=== PATIENT | female | born 1975 | race Caucasian/White ===

== ENCOUNTER 2017-03-17 22:13 | Emergency (ER) | payer MEDICAID ==
[~2017-03-17] VITALS: Ht 154.9 cm; Wt 86.6 kg
[~2017-03-17 22:13] MED LIST: ATORVASTATIN CA20 MG PO; BAYER CHEWABLE81 MG PO; CYCLOBENZAPRINE5 MG PO; HYDROCHLOROTHIA25 M2 PO; HYDROCODONE-AP1 EAC6 PO; LOPRESSOR50 PO; NORCO 5-325 TA1 EAC1 PO; PAXIL10 MG PO; PLAVIX 300 MG300 M1 PO; PLAVIX 75 MG TA75 M1 PO; XANAX1 MG PO
[2017-03-17] MEDS ORDERED: TESSALON PERLE100 MG (22:28)
[2017-03-17 23:29] LABS: HEMOGLOBIN 12.3 gm/dL (12.0-15.0)
[2017-03-17 23:31] LABS: ABSOLUTE EOSINOPHILS 0.1 thou/uL (0.0-0.7); ABSOLUTE LYMPHOCYTES 2.3 thou/uL (0.8-5.3); ABSOLUTE MONOCYTES 0.5 thou/uL (0.0-1.2); ABSOLUTE NEUTROPHILS 4.8 thou/uL (1.6-8.1); BASOPHILS 0.6 %; EOSINOPHILS 1.7 %; HEMATOCRIT 36.8 % (37.0-47.0); LYMPHOCYTES 29.3 %; MCH 30.2 pg (26.0-34.0); MCHC 33.4 g/dL (28.0-37.0); MCV 90.5 fL (80.0-100.0); MONOCYTES 5.8 %; MPV 7.9 fl. (7.2-11.1); NUCLEATED RBCS 0 /100WBC; PLATELET COUNT* 388 thou/uL (150-400); POLYS 62.6 %; RBC 4.06 mil/uL (4.20-5.00); RDW-CV 14.9 % (10.5-14.5); WBC 7.7 thou/uL (4.0-11.0)
[2017-03-17 23:46] LABS: CALCIUM 9.6 mg/dL (8.5-10.1); CREATININE 1.1 mg/dL (0.6-1.3); POTASSIUM 4.7 mmol/L (3.5-5.1)
[2017-03-17] MEDS ORDERED: IBUPROFEN 800800 MG PO (23:46)
[2017-03-17] MEDS ORDERED: CYCLOBENZAPRINE5 MG PO (23:46)
[2017-03-17 23:51] LABS: ALBUMIN 3.7 g/dL (3.4-5.0); TOTAL BILIRUBIN 0.1 mg/dL (<0.1-1.0); TOTAL PROTEIN 6.6 g/dL (6.4-8.2)
[2017-03-18 00:25] VITALS: BP 148/80
== END 2017-03-18 00:25 | disposition home or self-care (01) ==
LOC: M.ERS 22:13
PROVIDERS: Personal Emergency Response Attendant
DX: N93.8 Other specified abnormal uterine and vaginal bleeding (principal); I10 Essential (primary) hypertension; F17.210 Nicotine dependence, cigarettes, uncomplicated; Z90.89 Acquired absence of other organs; Z88.1 Allergy status to other antibiotic agents; Z88.8 Allergy status to other drugs, medicaments and biological substances

== ENCOUNTER 2017-03-18 04:35 | Emergency (ER) | payer MEDICAID ==
[~2017-03-18] VITALS: Ht 154.9 cm; Wt 86.6 kg
[~2017-03-18 04:35] MED LIST changes: +IBUPROFEN 800800 MG PO; +TESSALON PERLE100 MG
[2017-03-18 05:07] LABS: HEMATOCRIT 38.1 % (37.0-47.0); HEMOGLOBIN 12.9 gm/dL (12.0-15.0); MCH 30.2 pg (26.0-34.0); MCHC 33.8 g/dL (28.0-37.0); MCV 89.3 fL (80.0-100.0); MPV 8.1 fl. (7.2-11.1); RBC 4.26 mil/uL (4.20-5.00); RDW-CV 14.7 % (10.5-14.5); WBC 10.1 thou/uL (4.0-11.0)
[2017-03-18 05:40] LABS: URINE BILIRUBIN NEGATIVE (Negative); URINE BLOOD 3+ (Negative); URINE CLARITY CLEAR; URINE COLOR RED; URINE GLUCOSE-RANDOM NEGATIVE (Negative); URINE KETONES NEGATIVE (Negative); URINE LEUKOCYTES-REFLEX NEGATIVE (Negative); URINE NITRITE-REFLEX NEGATIVE (Negative); URINE PROTEIN TRACE (Negative); URINE SPECIFIC GRAVITY <= 1.005 (1.005-1.030); URINE UROBILINOGEN 0.2 E.U./dl (0.2-1.0)
[2017-03-18 05:57] LABS: BACTERIA-REFLEX 1-9 Few /HPF (None Seen); CASTS None Seen /LPF (None Seen); MUCUS 0-3 Light strn/LPF (None Seen); SQUAMOUS 0-3 Few /LPF (0-3); URINE RBC >20 Many /HPF (0-2); URINE WBC-REFLEX None Seen /HPF (0-5)
[2017-03-18 05:58] LABS: CRYSTALS None Seen /LPF (None Seen)
[2017-03-18 06:10] VITALS: BP 140/94
== END 2017-03-18 06:10 | disposition home or self-care (01) ==
LOC: M.ERS 04:35
PROVIDERS: Personal Emergency Response Attendant
DX: N93.8 Other specified abnormal uterine and vaginal bleeding (principal); I10 Essential (primary) hypertension; F17.210 Nicotine dependence, cigarettes, uncomplicated; Z90.89 Acquired absence of other organs; Z88.1 Allergy status to other antibiotic agents; Z88.8 Allergy status to other drugs, medicaments and biological substances

== ENCOUNTER 2017-07-18 22:59 | Emergency (ER) | payer MEDICAID ==
[~2017-07-18] VITALS: Ht 160 cm; Wt 81.7 kg
[2017-07-19 00:11] LABS: ABSOLUTE BASOPHILS 0.1 thou/uL (0.0-0.2); ABSOLUTE EOSINOPHILS 0.2 thou/uL (0.0-0.7); ABSOLUTE LYMPHOCYTES 2.7 thou/uL (0.8-5.3); ABSOLUTE MONOCYTES 0.7 thou/uL (0.0-1.2); ABSOLUTE NEUTROPHILS 10.2 thou/uL (1.6-8.1); BASOPHILS 0.6 %; EOSINOPHILS 1.3 %; HEMATOCRIT 36.1 % (37.0-47.0); HEMOGLOBIN 11.9 gm/dL (12.0-15.0); LYMPHOCYTES 19.5 %; MCH 29.7 pg (26.0-34.0); MONOCYTES 5.2 %; MPV 7.5 fl. (7.2-11.1); NUCLEATED RBCS 0 /100WBC; PLATELET COUNT* 476 thou/uL (150-400); POLYS 73.4 %; RBC 4.01 mil/uL (4.20-5.00); RDW-CV 14.3 % (10.5-14.5); WBC 13.9 thou/uL (4.0-11.0)
[2017-07-19 00:15] LABS: CALCIUM 9.4 mg/dL (8.5-10.1); CREATININE 1.3 mg/dL (0.6-1.3); POTASSIUM 3.2 mmol/L (3.5-5.1)
[2017-07-19] MEDS ORDERED: LASIX 40 MG TAB40 M2 PO (00:25)
[2017-07-19] MEDS ORDERED: KLOR-CON 1010 MEQ PO (00:25)
[2017-07-19 00:27] LABS: AMP/METHAMP Negative (Negative); BARBITURATES Negative (Negative); BENZODIAZEPINES POSITIVE (Negative); COCAINE Negative (Negative); METHADONE Negative (Negative); OPIATES Negative (Negative); PCP Negative (Negative); THC Negative (Negative)
[2017-07-19 00:33] LABS: URINE BILIRUBIN NEGATIVE (Negative); URINE BLOOD NEGATIVE (Negative); URINE CLARITY CLEAR; URINE COLOR STRAW; URINE GLUCOSE-RANDOM NEGATIVE (Negative); URINE KETONES NEGATIVE (Negative); URINE LEUKOCYTES-REFLEX 1+ (Negative); URINE NITRITE-REFLEX NEGATIVE (Negative); URINE PROTEIN NEGATIVE (Negative); URINE UROBILINOGEN 0.2 E.U./dl (0.2-1.0)
[2017-07-19 01:02] LABS: SQUAMOUS >10 Many /LPF (0-3)
[2017-07-19 01:03] VITALS: BP 134/80
[2017-07-19 01:03] LABS: BACTERIA-REFLEX 1-9 Few /HPF (None Seen); CASTS None Seen /LPF (None Seen); CRYSTALS None Seen /LPF (None Seen); URINE RBC None Seen /HPF (0-2); URINE WBC-REFLEX 0-5 Rare /HPF (0-5)
== END 2017-07-19 01:04 | disposition home or self-care (01) ==
LOC: M.ERS 22:59
PROVIDERS: Emergency Medicine
DX: R60.0 Localized edema (principal); I10 Essential (primary) hypertension; F17.210 Nicotine dependence, cigarettes, uncomplicated; Z88.1 Allergy status to other antibiotic agents; Z88.8 Allergy status to other drugs, medicaments and biological substances

== ENCOUNTER 2017-07-24 01:45 | Emergency (ER) | payer MEDICAID ==
[~2017-07-24] VITALS: Ht 154.9 cm; Wt 86.2 kg
[~2017-07-24 01:45] MED LIST changes: +KLOR-CON 1010 MEQ PO; +LASIX 40 MG TAB40 M2 PO
[2017-07-24 03:05] LABS: CREATININE 1.1 mg/dL (0.6-1.3); MAGNESIUM 1.8 mg/dL (1.8-2.4)
[2017-07-24 03:23] VITALS: BP 116/79
== END 2017-07-24 03:25 | disposition home or self-care (01) ==
LOC: M.ERS 01:45
PROVIDERS: Emergency Medicine
DX: M79.1 Myalgia (principal); I10 Essential (primary) hypertension; F17.210 Nicotine dependence, cigarettes, uncomplicated; Z88.1 Allergy status to other antibiotic agents; Z88.8 Allergy status to other drugs, medicaments and biological substances

== ENCOUNTER 2017-12-22 10:23 | Inpatient (IN) | payer MEDICAID ==
[~2017-12-22] VITALS: Ht 154.9 cm; Wt 74.4 kg
[2017-12-22 10:41] VITALS: BP 138/82
[2017-12-22] MEDS ORDERED: BLOOD PRESSURE MED (10:44)
[2017-12-22 10:46] LABS: URINE BLOOD 1+ (Negative); URINE CLARITY CLEAR; URINE COLOR YELLOW; URINE GLUCOSE-RANDOM NEGATIVE (Negative); URINE KETONES 1+ (Negative); URINE LEUKOCYTES-REFLEX 1+ (Negative); URINE NITRITE-REFLEX NEGATIVE (Negative); URINE PROTEIN 1+ (Negative)
[2017-12-22 10:49] LABS: ICTOTEST (BILI CONFIRMATORY) Negative (Negative); URINE BILIRUBIN 2+ (Negative)
[2017-12-22 10:51] LABS: CASTS None Seen /LPF (None Seen); CRYSTALS None Seen /LPF (None Seen); MUCUS 4-6 Moderate strn/LPF (None Seen); SQUAMOUS 4-10 Moderate /LPF (0-3); URINE RBC 3-10 Few /HPF (0-2); URINE WBC-REFLEX 6-15 Few /HPF (0-5)
[2017-12-22 11:06] LABS: ABSOLUTE BASOPHILS 0.1 thou/uL (0.0-0.2); ABSOLUTE LYMPHOCYTES 1.6 thou/uL (0.8-5.3); ABSOLUTE MONOCYTES 0.5 thou/uL (0.0-1.2); ABSOLUTE NEUTROPHILS 5.1 thou/uL (1.6-8.1); BASOPHILS 0.8 %; EOSINOPHILS 0.6 %; HEMATOCRIT 40.9 % (37.0-47.0); HEMOGLOBIN 13.5 gm/dL (12.0-15.0); LYMPHOCYTES 22.2 %; MCH 29.2 pg (26.0-34.0); MCV 88.8 fL (80.0-100.0); MONOCYTES 7.2 %; MPV 7.6 fl. (7.2-11.1); NUCLEATED RBCS 0 /100WBC; PLATELET COUNT* 426 thou/uL (150-400); POLYS 69.2 %; WBC 7.4 thou/uL (4.0-11.0)
[2017-12-22 11:14] LABS: ANION GAP 10 mmol/L (7-16); BUN 22 mg/dL (7-18); CALCIUM 9.4 mg/dL (8.5-10.1); CHLORIDE 101 mmol/L (98-107); CO2 26 mmol/L (21-32); GLUCOSE 110 mg/dL (70-99); SODIUM 137 mmol/L (136-145)
[2017-12-22 11:15] LABS: POTASSIUM 2.8 mmol/L (3.5-5.1)
[2017-12-22 11:21] LABS: ALBUMIN 4.1 g/dL (3.4-5.0); ALKALINE PHOSPHATASE 70 U/L (46-116); LIPASE 279 U/L (73-393); SGOT 20 U/L (15-37); SGPT 23 U/L (30-65); TOTAL BILIRUBIN 0.6 mg/dL (<0.1-1.0); TOTAL PROTEIN 7.7 g/dL (6.4-8.2); TROPONIN-I LEVEL <0.06 ng/mL (<0.06)
[2017-12-22 12:02] VITALS: BP 127/78
[2017-12-22 12:39] VITALS: BP 127/78
[2017-12-22] MEDS ORDERED: NORVASC5 MG PO (13:10)
[2017-12-22 15:41] VITALS: BP 117/84
[2017-12-22] MEDS ORDERED: ATENOLOL 25 MG25 M1 PO (18:58)
[2017-12-22 20:00] VITALS: BP 140/82
[2017-12-22 23:18] VITALS: BP 132/83
[2017-12-23 04:00] VITALS: BP 120/67
[2017-12-23 04:49] LABS: HEMATOCRIT 38.5 % (37.0-47.0); HEMOGLOBIN 12.5 gm/dL (12.0-15.0); MCH 29.1 pg (26.0-34.0); MCHC 32.4 g/dL (28.0-37.0); MCV 89.9 fL (80.0-100.0); MPV 7.9 fl. (7.2-11.1); RBC 4.28 mil/uL (4.20-5.00); RDW-CV 15.8 % (10.5-14.5); WBC 8.9 thou/uL (4.0-11.0)
[2017-12-23 04:50] LABS: CALCIUM 8.7 mg/dL (8.5-10.1); CREATININE 0.8 mg/dL (0.6-1.3); MAGNESIUM 1.8 mg/dL (1.8-2.4); PHOSPHORUS* 2.6 mg/dL (2.5-4.9); POTASSIUM 3.5 mmol/L (3.5-5.1)
[2017-12-23 09:00] VITALS: BP 131/80
--- NOTE | 2017-12-23 11:41 | EKG ---
[place] [address] ELECTROCARDIOGRAM REPORT Name: DEONTE CORONA Room: [address] ADM IN .R.#: [id number] Admission: 12/22/17 Attend Phys: Lizzie Zaragoza Discharge: Date of : 75 Report #: [id number] THIS REPORT FOR: //name// [facility] ED Test Date: 2017-12-22 Test Time: 10:44:23 Pat Name: DEONTE CORONA Department: Room: [facility] Gender: F Manager Legal: NANCY : 1975 Requested By: Citlaly Jefferson Order Number: [id number] MD: Charles Evans Measurements Intervals [place] Rate: 96 P: 48 ID: 157 QRS: 1 QRSD: 90 T: 29 QT: 355 QTc: 449 Interpretive Statements Sinus rhythm nonspecific t wave changes Abnormal R-wave progression, late transition Compared to ECG 05/22/2016 18:50:37 Prolonged QT interval no longer present Electronically Signed On 12-23-2017 11:41:00 ROOF PAINTER by Charles Evans [email or web address] <ELECTRONICALLY SIGNED> By: Charles Evans MD, FACC 12/23/17 1141 1044 1044 Charles Evans MD, [facility] /EPI
[2017-12-23 11:47] VITALS: BP 138/82
[2017-12-23 16:08] VITALS: BP 137/77
[2017-12-23 20:00] VITALS: BP 144/91
[2017-12-24] VITALS: BP 100/85
[2017-12-24 03:59] VITALS: BP 117/73
[2017-12-24 05:16] LABS: HEMATOCRIT 38.7 % (37.0-47.0); HEMOGLOBIN 12.5 gm/dL (12.0-15.0); MCH 29.3 pg (26.0-34.0); MCHC 32.2 g/dL (28.0-37.0); MCV 91.2 fL (80.0-100.0); MPV 8.2 fl. (7.2-11.1); RBC 4.24 mil/uL (4.20-5.00); WBC 7.7 thou/uL (4.0-11.0)
[2017-12-24 05:28] LABS: CALCIUM 8.4 mg/dL (8.5-10.1); CREATININE 0.8 mg/dL (0.6-1.3); MAGNESIUM 1.7 mg/dL (1.8-2.4); PHOSPHORUS* 2.6 mg/dL (2.5-4.9); POTASSIUM 3.5 mmol/L (3.5-5.1)
[2017-12-24 08:00] VITALS: BP 120/85
[2017-12-24] MEDS ORDERED: LEVAQUIN 500 M500 M2 PO (11:47)
[2017-12-24] MEDS ORDERED: ZOFRAN ODT4 MG DISSOLVE (11:48)
[2017-12-24 11:50] VITALS: BP 120/85
[2017-12-24 12:21] VITALS: BP 122/80
== END 2017-12-24 12:28 | disposition home or self-care (01) | DRG 690 ==
LOC: M.ERS 10:23 → M.TBA-ER 11:36 → M.2W 12:28
PROVIDERS: Physician Assistant; ADMIT Internal Medicine
DX: N39.0 Urinary tract infection, site not specified (principal); I10 Essential (primary) hypertension; H91.90 Unspecified hearing loss, unspecified ear; E87.6 Hypokalemia; F32.9 Major depressive disorder, single episode, unspecified; F41.9 Anxiety disorder, unspecified; F17.210 Nicotine dependence, cigarettes, uncomplicated; Z79.82 Long term (current) use of aspirin; Z79.899 Other long term (current) drug therapy; Z88.1 Allergy status to other antibiotic agents; Z91.041 Radiographic dye allergy status; Z88.8 Allergy status to other drugs, medicaments and biological substances; Z91.048 Other nonmedicinal substance allergy status

== ENCOUNTER 2018-01-28 12:58 | Inpatient (IN) | payer MEDICAID ==
[~2018-01-28] VITALS: Ht 162.6 cm; Wt 83.0 kg
--- NOTE | ~2018-01-28 | CON ---
[address] [address] CONSULTATION Name: CHLOEDEONTEHUBERT CARLTON Room: [address] IN .R.#: [id number] Admission: 01/28/18 Attend Phys: Lizzie Zaragoza Discharge: Date of : 75 Report #: [id number] THIS REPORT FOR: //name// CC: Young Archer DO DATE OF SERVICE: 01/30/2018 REQUESTING PHYSICIAN: Altaf Archer DO REASON FOR CONSULT: Persistent nausea and vomiting. HISTORY OF PRESENT ILLNESS: This is a 42-year-old female who was in the hospital back in December. The patient has had intermittent symptoms of severe epigastric pain associated with nausea and vomiting. The patient also complains of constipation, which has been ongoing. She does not see any relationship between her constipation and symptoms of nausea, vomiting. She denies ever having any colonoscopy or gastric emptying test in the past. PAST MEDICAL HISTORY: Significant for history of anxiety, depression, hypertension, right carotid endarterectomy, hypokalemia, hard of hearing. ALLERGIES AND MEDICATIONS: Refer to hospital MAR. SOCIAL HISTORY: The patient admits to tobaccoism, but denies any use of marijuana. She also may have occasional alcoholic beverage. FAMILY HISTORY: Negative for GI malignancy. PHYSICAL EXAMINATION: VITAL SIGNS: Reveals blood pressure of 130/85, respiration 14, pulse 67, temperature 98.5. LUNGS: Clear. CARDIOVASCULAR: Regular. ABDOMEN: Soft, tender to palpation in the epigastric region. Bowel sounds are positive. NEUROLOGIC: The patient is hard of hearing, but otherwise alert and oriented x 3 with no focal deficit. LABORATORY DATA: Reveal sodium of 140, potassium 4.3, up from 2.8 yesterday. BUN is 15, creatinine 0.7, glucose 96. Liver function tests all within normal limit. WBC is 14.7, hemoglobin 11.9 with platelets of [address]. [place] [address] CONSULTATION Name: DEONTE CORONA Room: [address] IN [facility]#: [id number] Admission: 01/28/18 Attend Phys: Lizzie Zaragoza Discharge: Date of : 75 Report #: [id number] IMAGING: Chest x-ray was obtained, which showed no acute cardiopulmonary process. ASSESSMENT AND PLAN: We will consider upper endoscopy to further evaluate the patient's symptoms of nausea, vomiting and epigastric pain. If this was negative, we will consider a gastric emptying test. By: 1320 1550Jadon Washington MD /bruna
[~2018-01-28 12:58] MED LIST changes: +ATENOLOL 25 MG25 M1 PO; +BLOOD PRESSURE MED; +LEVAQUIN 500 M500 M2 PO; +NORVASC5 MG PO; +ZOFRAN ODT4 MG DISSOLVE
[2018-01-28 13:08] VITALS: BP 133/91
[2018-01-28 13:23] LABS: URINE BLOOD 3+ (Negative); URINE CLARITY CLEAR; URINE COLOR YELLOW; URINE GLUCOSE-RANDOM NEGATIVE (Negative); URINE KETONES 2+ (Negative); URINE LEUKOCYTES-REFLEX 1+ (Negative); URINE NITRITE-REFLEX NEGATIVE (Negative); URINE PROTEIN 2+ (Negative)
[2018-01-28 13:25] LABS: ICTOTEST (BILI CONFIRMATORY) Positive (Negative); URINE BILIRUBIN 1+ (Negative)
[2018-01-28 13:29] LABS: CASTS None Seen /LPF (None Seen); CRYSTALS None Seen /LPF (None Seen); MUCUS >6 Heavy strn/LPF (None Seen); SQUAMOUS >10 Many /LPF (0-3); URINE WBC-REFLEX 6-15 Few /HPF (0-5)
[2018-01-28 13:30] LABS: HEMATOCRIT 40.2 % (37.0-47.0); HEMOGLOBIN 13.4 gm/dL (12.0-15.0); MCH 29.7 pg (26.0-34.0); MCHC 33.4 g/dL (28.0-37.0); MCV 88.8 fL (80.0-100.0); MPV 7.2 fl. (7.2-11.1); NUCLEATED RBCS 0 /100WBC; PLATELET COUNT* 457 thou/uL (150-400); RBC 4.53 mil/uL (4.20-5.00); RDW-CV 15.9 % (10.5-14.5); WBC 9.8 thou/uL (4.0-11.0)
[2018-01-28 13:46] LABS: CALCIUM 9.6 mg/dL (8.5-10.1); CREATININE 0.9 mg/dL (0.6-1.3)
[2018-01-28 13:51] LABS: ALBUMIN 4.3 g/dL (3.4-5.0); MAGNESIUM 1.6 mg/dL (1.8-2.4); TOTAL BILIRUBIN 0.4 mg/dL (<0.1-1.0); TOTAL PROTEIN 7.7 g/dL (6.4-8.2)
[2018-01-28 13:54] LABS: POTASSIUM 2.8 mmol/L (3.5-5.1)
[2018-01-28 14:24] LABS: ABSOLUTE EOSINOPHILS 0.1 thou/uL (0.0-0.7); ABSOLUTE LYMPHOCYTES 0.7 thou/uL (0.8-5.3); ABSOLUTE MONOCYTES 0.1 thou/uL (0.0-1.2); ABSOLUTE NEUTROPHILS 8.9 thou/uL (1.6-8.1); PLATELET ESTIMATE ADEQUATE
[2018-01-28] MEDS ORDERED: ZOFRAN ODT4 MG PO (14:27)
[2018-01-28 15:13] VITALS: BP 168/99
[2018-01-28 16:00] VITALS: BP 155/98
[2018-01-28 16:03] LABS: ALBUMIN 3.8 g/dL (3.4-5.0); CALCIUM 8.4 mg/dL (8.5-10.1); CREATININE 0.8 mg/dL (0.6-1.3); TOTAL BILIRUBIN 0.3 mg/dL (<0.1-1.0); TOTAL PROTEIN 6.8 g/dL (6.4-8.2)
[2018-01-28 16:12] LABS: POTASSIUM 2.8 mmol/L (3.5-5.1)
--- NOTE | 2018-01-28 16:43 | NUR ---
RECEIVED REPORT. PT TRANSFERRED TO ROOM 221 VIA CART. VSS. CARDIAC MONTIORING IN PLACE SR. ADMISSION HISTORY AND ASSESSMENT COMPLETED CHARTED. PT ALERT AND OREINTED. PT ON RA. IVF INFUSING PER ORDERS. PT HAS SOME NAUSE WITHOUT VOMITING. DR. WEST NOTIFIED OF PT'S K LEVEL AND NEED FOR E-LYTE PROTOCOL. PT DNEIES ANY PAIN AT THIS TIME. CALL LIGHT IS WITHIN REACH. WILL CONTINUE TO MOTNIOR FOR DURATION OF SHIFT.
[2018-01-28 20:00] VITALS: BP 169/69
[2018-01-29] VITALS (7 sets, daily range): BP systolic 130–170; BP diastolic 78–105
--- NOTE | 2018-01-29 07:37 | NUR ---
PATIENT RESTED IN BED. PATIENT COMPLAIN OF NAUSEA, DOCTOR NOTIFIED, SEE ORDERS. PATIENT VOMIT WAS DARK BROWN. PATIENT SHOWED TIGHTNESS AND CRAMPING THAT HAS DECREASED. DOCTOR NOTIFIED OF ELEVATED BLOOD PRESSURE, SEE ORDERS. CALL LIGHT WITH IN REACH, HOURLY ROUNDING OBSERVED, PATIENT VITALS ARE STABLE.
--- NOTE | 2018-01-29 08:10 | NUR ---
RECEIVED REPORT. ASSUMED CARE OF PT AT 0730. VSS. CARDIAC MONITORING IN PLACE SR. AM ASSESSMENT AND VITALS COMPLETED CHARTED. PT ALERT AND ORIENTED. PT REPORTS HAVING A "BAD NIGHT" PT DENIES ANY PAIN THIS AM. IVF INFUSING PER ORDERS. PT GIVEN PRN ZOFRAN FOR NAUSEA. PT INFORMED OF PLAN OF CARE. CALL LIGHT IS WITHIN REACH. WILL CONTINUE TO MONITOR FOR DURATIUON OF SHIFT.
--- NOTE | 2018-01-29 12:50 | NUR ---
Pt is A&O. NUIQSUT, but can read lips if you speak slowly. Pt's sig other in room and able to provide hx also. Pt resides at home with her sig other. Independent with ADLs, continues to cook and clean, but does not drive d/t her hearing loss. No DME. No hx of HH or SNF. Goal is home at vt. No needs anticipated.
[2018-01-29 13:50] LABS: ABSOLUTE LYMPHOCYTES 1.2 thou/uL (0.8-5.3); ABSOLUTE MONOCYTES 0.9 thou/uL (0.0-1.2); ABSOLUTE NEUTROPHILS 12.5 thou/uL (1.6-8.1); BASOPHILS 0.2 %; EOSINOPHILS 0.1 %; HEMATOCRIT 37.1 % (37.0-47.0); HEMOGLOBIN 11.9 gm/dL (12.0-15.0); LYMPHOCYTES 8.4 %; MCH 29.2 pg (26.0-34.0); MCHC 32.1 g/dL (28.0-37.0); MONOCYTES 6.1 %; MPV 8.2 fl. (7.2-11.1); NUCLEATED RBCS 0 /100WBC; PLATELET COUNT* 415 thou/uL (150-400); POLYS 85.2 %; RBC 4.08 mil/uL (4.20-5.00); WBC 14.7 thou/uL (4.0-11.0)
[2018-01-29 13:59] LABS: ALBUMIN 3.7 g/dL (3.4-5.0); CALCIUM 8.7 mg/dL (8.5-10.1); CREATININE 0.7 mg/dL (0.6-1.3); POTASSIUM 3.8 mmol/L (3.5-5.1); TOTAL BILIRUBIN 0.4 mg/dL (<0.1-1.0)
--- NOTE | 2018-01-29 18:40 | NUR ---
VSS. CARDIAC MONTIORING IN PLACE WITH NO CHAGNES THIS SHIFT. PT PROGRESSING TOWARDS GOALS. PT REAMINS ALERT AND OREITNED. PT REPORTS FEELING SOMEWHAT BETTER. PT REMAINS ON RA. IVF CHANGED THIS SHIFT. MULTIVITAMIN BAG INFUSING AT THIS TIME. PT HAD NO COMPLAINTS OF PAIN THIS SHIFT. PT'S NAUSEA BETTER MANAGED. GI CONSULT. PLAN FOR EGD TOMORROW. PT INFORMED OF PLAN OF CARE. PT COMMUNICATES UNDERSTANIDNG. CALL LIGHT IS WITHIN REACH. WILL CONTINUE TO MONTIOR FOR DURATION OF SHIFT.
[2018-01-30] VITALS (8 sets, daily range): BP systolic 130–181; BP diastolic 84–95
[2018-01-30 05:13] LABS: CALCIUM 9.2 mg/dL (8.5-10.1); CREATININE 0.7 mg/dL (0.6-1.3); MAGNESIUM 2.2 mg/dL (1.8-2.4); POTASSIUM 4.3 mmol/L (3.5-5.1)
--- NOTE | 2018-01-30 05:13 | NUR ---
PATIENT RESTED IN BED, NO ACUTE CHANGES. PATIENT DID NOT SHOW SIGNS OF DISTRESS. FALL PRECAUTIONS IN PLACE, CALL LIGHT WITH IN REACH, HOURLY ROUNDING OBSERVED, BED ALARM ON. PATIENT CURRENTLY DENIES PAIN AND NAUSEA AT THE MOMENT. PATIENT IS NPO FOR EGD.
--- NOTE | 2018-01-30 10:44 | NUR ---
PT ALERT AND ORIENTED X 4. HARD OF HEARING. DENIES NAUSEA AND PAIN. IV PATENT. HUBBAND IN ROOM WITH PATIENT. NPO FOR EGD PROCEDURE. PT TO PROCEDURE @ 1010 BY WHEEL CHAIR.
--- NOTE | 2018-01-30 15:50 | EKG ---
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
--- NOTE | 2018-01-30 17:15 | NUR ---
PT RETURNED TO UNIT @ 1410. IVF RESUMED. TOLERATED FULL LIQUID DIET. HOURLY ROUNDS MAINTAINED. @ BEDSIDE. NURSING TO CONTINUE TO MONITOR.
[2018-01-31] VITALS (7 sets, daily range): BP systolic 115–161; BP diastolic 66–84
--- NOTE | 2018-01-31 06:31 | NUR ---
PATIENT PARTIALLY PROGRESSING TOWARDS GOALS: PATIENT HAD A FEW EPISODES OF NAUSEA, BUT NO VOMITING, AND C/O PAIN IN EPIGASTRIC REGION. MEDICATIONS ADMINISTERED PER MAR WITH PARTIAL RELIEF. PATIENT WAS ABLE TO GET SOME SLEEP THROUGHOUT SHIFT. REMAINS AT BEDSIDE. HOURLY ROUNDING OBSERVED. CALL LIGHT WITHIN REACH
--- NOTE | 2018-01-31 12:29 | NUR ---
Spoke with , anticipate that Pt will be ready to dc tomorrow.
--- NOTE | 2018-01-31 17:34 | NUR ---
PATIENT HAS BEEN ALERT AND ORIENTED TODAY VERY PLEASANT. UP AD BELINDA IN ROOM. TOLERATED DIET ADVANCEMENT WELL TODAY. FAMILY HAS BEEN AT BEDSIDE MOST OF THE DAY. VITAL SIGNS STABLE ON ROOM AIR. NAUSEA IS BETTER TODAY. CALL LIGHT IS IN REACH, WILL CONTINUE TO MONITOR.
--- NOTE | 2018-02-01 05:59 | NUR ---
PATIENT PROGRESSING TOWARDS GOALS: PATIENT STATES EPIGASTRIC PAIN AND NAUSEA HAS IMPROVED. NO MEDS RECEIVED FOR THIS. PATIENT DID RECEIVE MEDICATION FOR TYLENOL. PATIENT SLEPT MOST OF SHIFT. PATIENT IS ANTICIPATING DISCHARGE TODAY. CALL LIGHT WITHIN REACH
[2018-02-01 08:00] VITALS: BP 107/71
[2018-02-01] MEDS ORDERED: CARAFATE 1 GM TA1 G1 PO (08:41)
[2018-02-01] MEDS ORDERED: REGLAN 5 MG TAB5 MG PO (08:41)
[2018-02-01] MEDS ORDERED: PHENERGAN 25 MG25 M1 PO (08:41)
[2018-02-01] MEDS ORDERED: PANTOPRAZOLE SO40 M1 PO (08:41)
--- NOTE | 2018-02-01 09:41 | NUR ---
ASSUMED PT CARE AT 0730, FULL ASSESMETN DONE CHARTED. PT A/O X4, IR[place]QUOIS, PLEASANT. BP LOWER THIS AM, LOPRESSOR HELD. PT M/S STATUS. RECIEVED DISCHARGE ORDERS THIS AM. PT USES CALL LIGHT APPROPRIALTY. WILL CONTINUE WITH PLAN OF CARE.
[2018-02-01 10:20] VITALS: BP 107/71
--- NOTE | 2018-02-03 13:08 | PATH ---
[address] [address] PATHOLOGY RPT PROCEDURE Name: HERMINIA PINA Room: [address] IN M.R.#: [id number] Admission: 01/28/18 Date of : 75 Discharge: 02/01/18 Report #: [id number] Path Case #: [id number] [facility] Accession Number: [id number] . 01 Material submitted: . PART A: MANISH PYLORIC ULCER PART B: DUODENAL BIOPSY . 01 Clinical history: . None provided . 02 Diagnosis: A. "Peripyloric ulcer", biopsy: - Gastric mucosa with mild reactive/regenerative changes and mild acute and chronic inflammation. - Negative H. pylori immunohistochemical stain (block A1); control reacted appropriately. . B. "Duodenal biopsies", biopsy: - Small bowel/duodenal mucosa with minimal histologic alterations; no evidence of celiac sprue. . (EVARISTO:ochoa; 01/31/2018) MBR/01/31/2018 . 02 Electronically signed: . Meena Bansal MD, Pathologist NPI- [id number] . 01 Gross description: . A. Received in formalin labeled "Herminia Pina, peripyloric ulcer," are 2 segments of betancourt soft tissue measuring 0.9 x 0.2 x 0.2 cm in aggregate dimensions and ranging from 0.4 to 0.5 cm in maximum dimension. The specimen is submitted entirely in cassette A1. . B. Received in formalin labeled "Herminia Pina, duodenal biopsies," are 4 segments of bet[place]ourt soft tissue measuring 1.1 x 0.8 x 0.2 cm in aggregate dimensions and ranging from 0.2 to 0.6 cm in maximum dimension. The specimen is submitted entirely in cassette B1. (TSD; 01/30/2018) TOB/TOB . 02 Pathologist provided ICD-10: K29.00, K29.50, E87.6 . 02 CPT . 268112, 159619, W73902 Specimen Comment: A courtesy copy of [place] [address] PATHOLOGY RPT PROCEDURE Name: CHLOEHERMINIA Room: [address] IN M.R.#: [id number] Admission: 01/28/18 Date of : 75 Discharge: 02/01/18 Report #: [id number] Path Case #: [id number] Specimen Comment: [phone], , . Specimen Comment: Report sent to ,DR WEST / DR MERCADO Specimen Comment: A duplicate report has been generated due to demographic updates. Performed at: [address], [place] [id number] MD Erik Hirsch MD Phone: [phone] Performed at: 02 [facility] [address] , [place], [place] [id number] MD Saurabh Simeon MD Phone: [phone]
== END 2018-02-01 10:45 | disposition home or self-care (01) | DRG 391 ==
LOC: M.ERS 12:58 → M.2W 14:54 → M.TBA-ER 14:54 → M.2W 15:25
PROVIDERS: Family Medicine; Physician Assistant; ADMIT Internal Medicine
PROC: 0DB68ZX Excision of Stomach, Via Natural or Artificial Opening Endoscopic, Diagnostic (ICD-10-PCS; principal; 2018-01-30)
PROC: 0DB98ZX Excision of Duodenum, Via Natural or Artificial Opening Endoscopic, Diagnostic (ICD-10-PCS; principal; 2018-01-30)
DX: K21.0 Gastro-esophageal reflux disease with esophagitis (principal); K25.4 Chronic or unspecified gastric ulcer with hemorrhage; I10 Essential (primary) hypertension; K44.9 Diaphragmatic hernia without obstruction or gangrene; K31.89 Other diseases of stomach and duodenum; H91.90 Unspecified hearing loss, unspecified ear; F32.9 Major depressive disorder, single episode, unspecified; F41.9 Anxiety disorder, unspecified; R68.81 Early satiety; E87.6 Hypokalemia; E83.42 Hypomagnesemia; F17.210 Nicotine dependence, cigarettes, uncomplicated; Z79.82 Long term (current) use of aspirin; Z79.899 Other long term (current) drug therapy; Z91.041 Radiographic dye allergy status; Z88.8 Allergy status to other drugs, medicaments and biological substances; Z91.048 Other nonmedicinal substance allergy status

== ENCOUNTER → 2018-03-31 | Outpatient (CLI) | payer MEDICAID ==
[~2018-03-31] MED LIST changes: +CARAFATE 1 GM TA1 G1 PO; +PANTOPRAZOLE SO40 M1 PO; +PHENERGAN 25 MG25 M1 PO; +REGLAN 5 MG TAB5 MG PO; +ZOFRAN ODT4 MG PO
== END ==
LOC: M.LAB 07:54
DX: E87.6 Hypokalemia (principal)

== ENCOUNTER 2019-11-20 21:49 | Emergency (ER) | payer MEDICAID ==
[~2019-11-20] VITALS: Ht 154.9 cm; Wt 99.8 kg
[~2019-11-20 21:49] MED LIST changes: +HYDROXYZINE HCL25 M1 PO; +OMEGA-31000 M1 PO; +OMEPRAZOLE40 MG PO; +POTASSIUM20 PO; +PREDNISONE 20 M20 M1 PO
[2019-11-20 22:30] LABS: ABSOLUTE BASOPHILS 0.1 thou/uL (0.0-0.2); ABSOLUTE EOSINOPHILS 0.2 thou/uL (0.0-0.7); ABSOLUTE LYMPHOCYTES 3.9 thou/uL (0.8-5.3); ABSOLUTE MONOCYTES 0.8 thou/uL (0.0-1.2); ABSOLUTE NEUTROPHILS 9.4 thou/uL (1.6-8.1); BASOPHILS 0.5 %; EOSINOPHILS 1.2 %; HEMATOCRIT 40.1 % (37.0-47.0); LYMPHOCYTES 27.4 %; MCH 31.2 pg (26.0-34.0); MCHC 34.9 g/dL (28.0-37.0); MCV 89.4 fL (80.0-100.0); MONOCYTES 5.2 %; MPV 7.4 fl. (7.2-11.1); NUCLEATED RBCS 0 /100WBC; PLATELET COUNT* 492 thou/uL (150-400); POLYS 65.7 %; RBC 4.48 mil/uL (4.20-5.00); RDW-CV 13.6 % (10.5-14.5); WBC 14.4 thou/uL (4.0-11.0)
[2019-11-20 22:31] LABS: CALCIUM 9.8 mg/dL (8.5-10.1); CREATININE 1.1 mg/dL (0.6-1.3)
[2019-11-20 22:34] LABS: POTASSIUM 2.9 mmol/L (3.5-5.1)
[2019-11-20 23:09] LABS: URINE BILIRUBIN NEGATIVE (Negative); URINE BLOOD TRACE (Negative); URINE CLARITY CLEAR; URINE COLOR YELLOW; URINE GLUCOSE-RANDOM NEGATIVE (Negative); URINE KETONES NEGATIVE (Negative); URINE LEUKOCYTES-REFLEX 1+ (Negative); URINE NITRITE-REFLEX NEGATIVE (Negative); URINE PROTEIN TRACE (Negative); URINE SPECIFIC GRAVITY 1.025 (1.005-1.030); URINE UROBILINOGEN 0.2 E.U./dl (0.2-1.0)
[2019-11-20 23:17] LABS: AMP/METHAMP Negative (Negative); BARBITURATES Negative (Negative); BENZODIAZEPINES Negative (Negative); COCAINE Negative (Negative); METHADONE Negative (Negative); OPIATES Negative (Negative); PCP Negative (Negative); THC POSITIVE (Negative)
[2019-11-20 23:20] LABS: BACTERIA-REFLEX >30 Many /HPF (None Seen); CASTS None Seen /LPF (None Seen); CRYSTALS None Seen /LPF (None Seen); MUCUS 4-6 Moderate strn/LPF (None Seen); SQUAMOUS >10 Many /LPF (0-3); TRANSITIONAL EPITHEL CELL 0-3 Few /LPF (None Seen); URINE RBC 3-10 Few /HPF (0-2); URINE WBC-REFLEX 6-15 Few /HPF (0-5)
[2019-11-21] MEDS ORDERED: XANAX 1 MG TABLE1 MG PO (01:05)
[2019-11-21 01:24] VITALS: BP 152/99
--- NOTE | 2019-11-23 13:39 | EKG ---
[place] [address] ELECTROCARDIOGRAM REPORT Name: DEONTE CORONA Room: [facility]#: [id number] Admission: 11/20/19 Attend Phys: Discharge: 11/21/19 Date of : 75 Date of Service: 11/20/192208 Report #: [id number] THIS REPORT FOR: //name// [facility] ED Test Date: 2019-11-20 Test Time: 22:09:02 Pat Name: DEONTE CORONA Department: Room: Gender: F Professor Of Historical Theology: [facility] : 1975 Requested By: Sarah Gottlieb Order Number: [id number] Katharina MD: Charles Evans Measurements Intervals [place] Rate: 101 P: 67 MN: 169 QRS: 11 QRSD: 88 T: 40 QT: 375 QTc: 487 Interpretive Statements Sinus tachycardia Borderline prolonged QT interval Baseline wander in lead(s) II,III,aVR,aVF,V1,V2,V3,V4,V5,V6 Compared to ECG 01/30/2018 10:42:43 Sinus rhythm no longer present Electronically Signed On 11-23-2019 13:39:03 CDT by Charles Evans [email or web address] <ELECTRONICALLY SIGNED> By: Charles Evans MD, FACC 11/23/19 1339 08 08 Charles Evans MD, FACC /EPI
--- NOTE | 2019-11-23 13:39 | EKG ---
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: [facility] : 1975 Requested By: Sarah Gottlieb Order Number: [id number] Reading MD: Charles Evans Measurements Intervals [place] Rate: 102 P: 50 VT: 167 QRS: 3 QRSD: 82 T: 24 QT: 376 QTc: 490 Interpretive Statements Sinus tachycardia Borderline T abnormalities, inferior leads Borderline prolonged QT interval Baseline wander in lead(s) II Compared to ECG 11/20/2019 22:09:02 no change Electronically Signed On 11-23-2019 13:39:42 CDT by Charles Evans [email or web address] <ELECTRONICALLY SIGNED> By: Charles Evans MD, FACC 11/23/19 1339 08 08 Charles Evans MD, [facility] /EPI
== END 2019-11-21 01:26 | disposition home or self-care (01) ==
LOC: M.ERS 21:49
PROVIDERS: Emergency Medicine
DX: E87.6 Hypokalemia (principal); F41.9 Anxiety disorder, unspecified; E83.42 Hypomagnesemia; I10 Essential (primary) hypertension; F17.210 Nicotine dependence, cigarettes, uncomplicated; Z88.1 Allergy status to other antibiotic agents; Z88.8 Allergy status to other drugs, medicaments and biological substances; Z79.899 Other long term (current) drug therapy

== ENCOUNTER 2020-03-20 16:05 | Emergency (ER) | payer MEDICAID ==
[~2020-03-20] VITALS: Ht 157.5 cm; Wt 92.1 kg
[~2020-03-20 16:05] MED LIST changes: +XANAX 1 MG TABLE1 MG PO
[2020-03-20] MEDS ORDERED: BENADRYL25 MG PO (16:23)
[2020-03-20] MEDS ORDERED: LIPITOR10 MG PO (16:23)
[2020-03-20] MEDS ORDERED: PROBIOTIC1 EAC4 PO (16:23)
[2020-03-20] MEDS ORDERED: SEROQUEL 100 M100 M1 PO (16:24)
[2020-03-20] MEDS ORDERED: FENOFIBRATE150 MG PO (16:24)
[2020-03-20 16:54] LABS: URINE BILIRUBIN NEGATIVE (Negative); URINE BLOOD TRACE (Negative); URINE COLOR YELLOW; URINE GLUCOSE-RANDOM NEGATIVE (Negative); URINE KETONES NEGATIVE (Negative); URINE LEUKOCYTES-REFLEX TRACE (Negative); URINE NITRITE-REFLEX NEGATIVE (Negative); URINE PROTEIN NEGATIVE (Negative); URINE UROBILINOGEN 0.2 E.U./dl (0.2-1.0)
[2020-03-20 16:55] LABS: URINE CLARITY HAZY
[2020-03-20 17:03] LABS: ABSOLUTE EOSINOPHILS 0.1 thou/uL (0.0-0.7); ABSOLUTE LYMPHOCYTES 1.9 thou/uL (0.8-5.3); ABSOLUTE MONOCYTES 0.7 thou/uL (0.0-1.2); ABSOLUTE NEUTROPHILS 8.7 thou/uL (1.6-8.1); BASOPHILS 0.3 %; EOSINOPHILS 0.9 %; HEMATOCRIT 40.4 % (37.0-47.0); HEMOGLOBIN 13.5 gm/dL (12.0-15.0); LYMPHOCYTES 16.5 %; MCH 30.3 pg (26.0-34.0); MCHC 33.3 g/dL (28.0-37.0); MONOCYTES 6.1 %; MPV 7.5 fl. (7.2-11.1); NUCLEATED RBCS 0 /100WBC; PLATELET COUNT* 362 thou/uL (150-400); POLYS 76.2 %; RBC 4.44 mil/uL (4.20-5.00); RDW-CV 13.6 % (10.5-14.5); WBC 11.5 thou/uL (4.0-11.0)
[2020-03-20 17:03] LABS: SQUAMOUS >10 Many /LPF (0-3)
[2020-03-20 17:04] LABS: BACTERIA-REFLEX None Seen /HPF (None Seen); CASTS None Seen /LPF (None Seen); CRYSTALS None Seen /LPF (None Seen); URINE RBC None Seen /HPF (0-2); URINE WBC-REFLEX 0-5 Rare /HPF (0-5)
[2020-03-20 17:15] LABS: CALCIUM 9.4 mg/dL (8.5-10.1); CREATININE 1.1 mg/dL (0.6-1.3); POTASSIUM 3.6 mmol/L (3.5-5.1)
[2020-03-20 17:19] LABS: ALBUMIN 4.1 g/dL (3.4-5.0); TOTAL BILIRUBIN 0.2 mg/dL (<0.1-1.0); TOTAL PROTEIN 7.3 g/dL (6.4-8.2)
[2020-03-20] MEDS ORDERED: FLAGYL500 M1 PO (18:43)
[2020-03-20] MEDS ORDERED: CIPRO500 MG PO (18:43)
[2020-03-20 19:05] VITALS: BP 132/81
== END 2020-03-20 19:05 | disposition home or self-care (01) ==
LOC: M.ERS 16:05
PROVIDERS: Physician Assistant
DX: K52.9 Noninfective gastroenteritis and colitis, unspecified (principal); I10 Essential (primary) hypertension; F17.210 Nicotine dependence, cigarettes, uncomplicated; Z88.1 Allergy status to other antibiotic agents; Z88.8 Allergy status to other drugs, medicaments and biological substances

== ENCOUNTER 2020-09-24 21:26 | Emergency (ER) | payer MEDICAID ==
[~2020-09-24] VITALS: Ht 154.9 cm; Wt 96.6 kg
[~2020-09-24 21:26] MED LIST changes: +BENADRYL25 MG PO; +CIPRO500 MG PO; +FENOFIBRATE150 MG PO; +FLAGYL500 M1 PO; +LIPITOR10 MG PO; +PROBIOTIC1 EAC4 PO; +SEROQUEL 100 M100 M1 PO
[2020-09-24 22:57] VITALS: BP 144/79
== END 2020-09-24 22:57 | disposition home or self-care (01) ==
LOC: M.ERS 21:26
DX: T75.89XA Other specified effects of external causes, initial encounter (principal); I10 Essential (primary) hypertension; F41.9 Anxiety disorder, unspecified; F32.9 Major depressive disorder, single episode, unspecified; F17.210 Nicotine dependence, cigarettes, uncomplicated; Z98.890 Other specified postprocedural states; Z79.899 Other long term (current) drug therapy; Z79.82 Long term (current) use of aspirin; Z79.1 Long term (current) use of non-steroidal anti-inflammatories (NSAID); Z88.1 Allergy status to other antibiotic agents; Z88.8 Allergy status to other drugs, medicaments and biological substances; Z91.048 Other nonmedicinal substance allergy status; X58.XXXA Exposure to other specified factors, initial encounter; Y93.89 Activity, other specified; Y92.89 Other specified places as the place of occurrence of the external cause; Y99.8 Other external cause status